=== PATIENT | female | born 1955 | race Caucasian/White ===

== ENCOUNTER 2018-02-06 11:58 | Inpatient (IN) ==
[2018-02-06] MEDS ORDERED: DEXTROSE 50% 50 ML VIAL IV ONE ×2 (12:35→14:14)
[2018-02-06 12:47] LABS: Basophils # (Auto) 0 K/mcL (0.0-0.3); Basophils % (Auto) 0.3 % (0.0-2.0); Eosinophils # (Auto) 0.1 K/mcL (0.0-0.7); Eosinophils % (Auto) 0.7 % (0.0-7.0); Granulocytes % (Auto) 66.5 % (38.0-78.0); Lymphocytes # (Auto) 1.7 K/mcL (1.5-4.8); Lymphocytes % (Auto) 20.6 % (15.5-49.0); Mean Cell Volume 93.3 fL (80.0-100.0); Mean Corpuscular HGB Conc 33.5 g/dL (31.0-36.0); Mean Corpuscular Hemoglobin 31.3 pg (26.0-34.0); Monocytes % (Auto) 11.9 % (1.0-12.0); Platelet Count 278 K/mcL (140-440); RBC 3.93 M/mcL (4.00-5.20); Red Cell Distribution Width 13.6 % (11.5-14.5)
[2018-02-06 13:05] LABS: Blood Urea Nitrogen 11 mg/dl (8-23)
[2018-02-06 13:56] LABS: Erythrocyte Sedimentation Rate 44 mm/hr (0-20)
[2018-02-06] MEDS ORDERED: ceFAZolin 1 GM VIAL IV SCH (14:30)
[2018-02-06] MEDS ORDERED: ceFAZolin 1 GM VIAL IV ONE (15:30)
[2018-02-06] MEDS ORDERED: ONDANSETRON 4 MG/2 ML VIAL IV ONE (15:30)
[2018-02-06] MEDS ORDERED: LIDOCAINE HCL/PF 100 MG/5 ML SYRINGE IV ONE (15:30)
[2018-02-06] MEDS ORDERED: fentaNYL 250 MCG/5 ML VIAL IV ONE (15:30)
[2018-02-06] MEDS ORDERED: DEXAMETHASONE 10 MG/ML VIAL IV ONE (15:30)
[2018-02-06] MEDS ORDERED: PROPOFOL 200 MG/20 ML VIAL IV ONE (15:30)
[2018-02-06] MEDS ORDERED: MIDAZOLAM 5 MG/5 ML VIAL IV ONE (15:30)
[2018-02-06] MEDS ORDERED: MEPERIDINE 25 MG/ML SYRINGE IV PRN (16:03)
[2018-02-06] MEDS ORDERED: ACETAMINOPHEN 1,000 MG/100 ML BOTTLE IV ONE (16:03)
[2018-02-06] MEDS ORDERED: FLUMAZENIL 0.1 MG/ML ML IV PRN (16:03)
[2018-02-06] MEDS ORDERED: NALOXONE HCL 0.4 MG/ML VIAL IV PRN (16:03)
[2018-02-06] MEDS ORDERED: PROMETHAZINE 25 MG/ML VIAL IV PRN (16:03)
[2018-02-06] MEDS ORDERED: diphenhydrAMINE 50 MG/ML VIAL IV PRN (16:03)
[2018-02-06] MEDS ORDERED: IPRATROPIUM/ALBUTEROL 3 ML AMPUL.NEB NEB PRN (16:03)
[2018-02-06] MEDS ORDERED: ONDANSETRON 4 MG/2 ML VIAL IV PRN (16:03)
[2018-02-06] MEDS ORDERED: fentaNYL 100 MCG/2 ML VIAL IV PRN (16:03)
[2018-02-06] MEDS ORDERED: BENZOCAINE/MENTHOL 1 LOZENGE PO PRN (16:03)
[2018-02-06] MEDS ORDERED: LACTATED RINGERS 250 ML IV PRN (16:03)
[2018-02-06] MEDS ORDERED: TOBRAMYCIN SULFATE 1.2 GM VIAL TOPICAL ONE (16:10)
[2018-02-06] MEDS ORDERED: VANCOMYCIN 1 GM VIAL TOPICAL SCH (16:10)
[2018-02-06] MEDS ORDERED: GENTAMICIN SULFATE 800 MG/20 ML VIAL IR ONE (16:13)
[2018-02-06] MEDS ORDERED: LACTATED RINGERS 1,000 ML IV SCH (16:15)
[2018-02-06] MEDS ORDERED: TRANEXAMIC ACID 1,000 MG/10 ML VIAL IV ONE (16:26)
[2018-02-06] MEDS ORDERED: POLYETHYLENE GLYCOL 3350 17 GM PACKET PO PRN (16:26)
[2018-02-06] MEDS ORDERED: MAGNESIUM HYDROXIDE 30 ML ORAL.SUSP PO PRN (16:26)
[2018-02-06] MEDS ORDERED: METHOCARBAMOL 750 MG TABLET PO PRN (16:26)
[2018-02-06] MEDS ORDERED: BISACODYL 10 MG SUPP.RECT PR PRN (16:26)
--- NOTE | 2018-02-06 16:26 | Brief Operative Note ---
Date of procedure: 02/06/18 Pre-op diagnosis: wound dehiscence, possible deep infection left total knee replacement Post-op diagnosis: same Procedure: debridement with placement of antibiotic beads Grafts/Implants: No Anesthesia: GETA Complications: none Surgeon: Nato Chino Internist: Merlni Smith Estimated blood loss (cc): 50 Tourniquet Time (Minutes): 45 Specimens Removed/Pathology: other (SQ cx, deep cx, deep cell count) Condition: stable Disposition: PACU
[2018-02-06] MEDS ORDERED: INSULIN LISPRO 1 UNIT/0.01 ML UNIT SQ PRN (16:35)
[2018-02-06] MEDS ORDERED: IPRATROPIUM BROMIDE 1 PUFF INHALER INH SCH (16:45)
[2018-02-06] MEDS ORDERED: DEXTROSE 50% 50 ML VIAL IV PRN (17:00)
[2018-02-06] MEDS: 0.9 % SODIUM CHLORIDE 1,000 ML IV SCH (19:36)
[2018-02-06] MEDS: HYDROcodone/APAP 10/325MG TABLET PO PRN (19:36)
[2018-02-06 20:06] LABS: Appearance,Synovial Fluid BLOODY; Color,Synovial Fluid RED; Lymphocytes,Synovial Fluid 2 %; Neutrophils,Synovial Fluid 94 % (0-25); Other Cells,Synovial Fluid 4 %
[2018-02-06] MEDS: IPRATROPIUM/ALBUTEROL 3 ML AMPUL.NEB NEB SCH ×2 (20:36→23:48)
[2018-02-06] MEDS: buPROPion 150 MG TAB.SR.12H PO SCH (21:02)
[2018-02-06] MEDS: ATORVASTATIN 20 MG TABLET PO SCH (21:02)
[2018-02-06] MEDS: SENNOSIDES 1 TABLET PO SCH (21:02)
[2018-02-06] MEDS: INSULIN GLARGINE, HUMAN 1 UNIT/0.01 ML SQ SCH (21:02)
[2018-02-06] MEDS: DOCUSATE SODIUM 100 MG CAPSULE PO SCH (21:02)
[2018-02-06] MEDS: ceFAZolin 1 GM VIAL IV SCH (23:11)
[2018-02-07] MEDS: HYDROcodone/APAP 10/325MG TABLET PO PRN ×5 (03:01→19:45)
[2018-02-07] MEDS: 0.9 % SODIUM CHLORIDE 1,000 ML IV SCH (03:48)
[2018-02-07] MEDS: IPRATROPIUM/ALBUTEROL 3 ML AMPUL.NEB NEB SCH ×6 (03:51→23:14)
[2018-02-07] MEDS: ceFAZolin 1 GM VIAL IV SCH (06:55)
--- NOTE | 2018-02-07 06:59 | Operative Note ---
DATE OF OPERATION: 02/06/2018 PREOPERATIVE DIAGNOSIS: Wound dehiscence with infection status post left knee replacement. POSTOPERATIVE DIAGNOSIS: Wound dehiscence with infection status post left knee replacement. OPERATION: Incision and drainage with arthrotomy and placement of antibiotic beads. SURGEON: Nato Chion MD [employer] PANELS PLATER: Merlin Smith PA-C ANESTHESIA: General done by Wero Glover CRNA. TOURNIQUET TIME: 45 minutes. ESTIMATED BLOOD LOSS: 50 mL SUMMARY OF PROCEDURE: General anesthesia was attained. The left knee show dehiscence distally and also medially consistent with microvascular disease. There was some expressed seropurulent material. This was sampled from the subcutaneous tissue for aerobic and anaerobic analysis. The necrotic aspect of the midline incision was excised. This was all inferior to the tibial tubercle. This incision was taken down to the anterior musculature. This area was irrigated with 3 liters of antibiotic irrigant as well as with the IrriSept. The suture line in the area of the quadriceps was intact. Prior to opening the joint, I took an aspiration of the contained fluid as there was no disruption in the retinaculum. 6 mL of fluid were obtained. This was sampled on a urine strip and was negative for white cells. A lateral release was done. The jet lavage was placed into the joint and the joint was thoroughly irrigated. The suture line was not taken down as the joint did not appear to be infected. We then reirrigated the subcutaneous tissue. Antibiotic beads were placed in the subcutaneous tissue as well. Antibiotic beads were then placed throughout the knee The incision was then closed with 2-0 Monocryl and mattress sutures of #2 nylon. A sterile compressive dressing was applied followed by a knee brace. The sponge and needle count was correct. The patient tolerated the procedure well and was taken to the recovery room in stable condition. TJF:[id number] Job ID: [id number] Doc ID: [id number] Nato Chino MD MTDBrice
[2018-02-07] MEDS ORDERED: DEXTROSE 31 GM ORAL.SUSP PO PRN (08:00)
[2018-02-07] MEDS ORDERED: DEXTROSE 50% 50 ML VIAL IV PRN (08:00)
--- NOTE | 2018-02-07 08:03 | Orthopedic Progress Note ---
Subjective Patient information: Note initiated : 02/07/18 at 8:00 am Service Date, if different from initiated Date: [] Patient: Mariel Presley 62 y/o F admitted on 02/06/18 for I&D of left Knee/ Proximal Tibia. Chief Complaint: [] Patient is doing well today and her pain is controlled on pain medicine. She denies any calf pain, numbness/tingling, weakness, or any other acute symptoms. Objective Vital signs: Vital Signs Temp Pulse Pulse Resp BP BP Pulse Ox 02/07/18 07:26 92 02/07/18 07:22 85 16 02/07/18 07:00 99.1 F H 98 H 16 133/71 96 02/07/18 03:14 98.7 F 92 H 16 148/74 94 02/07/18 00:00 98.5 F 89 14 158/77 96 02/06/18 23:48 87 14 98 02/06/18 20:39 87 16 95 02/06/18 20:25 98.3 F 88 18 148/77 93 02/06/18 19:28 97.6 F 92 H 16 155/70 94 02/06/18 18:10 98.0 F 84 16 152/65 94 02/06/18 17:37 97.8 F 85 16 157/76 96 02/06/18 17:35 97.8 F 80 15 146/78 95 02/06/18 17:20 97.8 F 78 15 144/83 95 02/06/18 17:05 80 15 146/78 96 02/06/18 16:51 98.1 F 84 17 125/56 96 02/06/18 12:27 98.1 F 74 16 135/71 98 Intake and Output 02/06/18 02/07/18 02/07/18 21:59 05:59 13:59 Intake Total 150 / 150 Balance 150 / 150 Intake: Oral 150 / 150 Other: Meal pt provided soup and orange juice # Voids 1 1 Weight 205 lb Intake & Output: Intake & Output 02/06/18 02/07/18 02/07/18 21:59 05:59 13:59 Intake Total 150 / 150 Balance 150 / 150 Weight 205 lb Intake: Oral 150 / 150 Other: Meal pt provided soup and orange juice # Voids 1 1 Incision: Yes healing, Yes clean and dry Dressing: Yes clean, Yes dry, Yes intact Weight bearing status: full Neurological exam IM: Yes neurovascular intact Extremities exam IM: No calf tenderness, Yes normal inspection, Yes Foot pink and warm - Labs CBC & BMP: 02/07/18 04:30 02/06/18 12:23 Labs: Orthopedic Labs 02/07/18 04:30 PT 13.4 INR 1.0 02/07/18 02/06/18 04:30 12:23 Hgb 12.1 12.3 Hct 36.7 36.7 Assessment and Plan (1) Infection following a procedure, sequela Patient had an irrigation and debridement yesterday for cellulitis and abscess s /p left total knee arthroplasty with possible joint involvement. Cultures from the abscess and the joint are pending. Cell count of the joint does not appear to show infection. She had antibiotic beads placed and her skin was closed but due to the resection of tissue her wound is very tight and she is not to bend her knee. Plan: 1. PT only for WB but no ROM 2. Wound care consultation today with possibility of wound vac 3. Hospitalists consult for IV antibiotic choice for outpatient for next 2 weeks or more as indicated 4. PICC line placement today 5. Likely discharge within 1-2 days 6. Smoking cessation continued to be encouraged Status: Acute
[2018-02-07] MEDS: INSULIN GLARGINE, HUMAN 1 UNIT/0.01 ML SQ SCH ×3 (09:14→21:11)
[2018-02-07] MEDS: CHLORTHALIDONE 25 MG TABLET PO SCH (09:16)
[2018-02-07] MEDS: POTASSIUM CHLORIDE 10 MEQ TABLET PO SCH (09:16)
[2018-02-07] MEDS: buPROPion 150 MG TAB.SR.12H PO SCH ×2 (09:17→20:08)
[2018-02-07] MEDS: LOSARTAN 50 MG TABLET PO SCH (09:18)
[2018-02-07] MEDS: DOCUSATE SODIUM 100 MG CAPSULE PO SCH ×2 (09:18→20:08)
[2018-02-07] MEDS: FUROSEMIDE 40 MG TABLET PO SCH (09:18)
[2018-02-07] MEDS: ASPIRIN 325 MG ENTERIC COATED TABLET PO SCH (09:19)
[2018-02-07] MEDS: ISOSORBIDE MONONITRATE 30 MG TAB.XL.24H PO SCH (09:19)
[2018-02-07 09:25] LABS: ALT/SGPT 10 U/l (0-40); Albumin 3.1 gm/dL (3.2-5.2); Alkaline Phosphatase 90 U/L (39-117); Bilirubin,Direct < 0.2 mg/dL (0.0-0.3); Blood Urea Nitrogen 5 mg/dl (8-23); Gamma Glutamyl Transpeptidase 39 U/L (5-36); Uric Acid 3.4 mg/dL (2.5-8.0)
[2018-02-07] MEDS ORDERED: MAGNESIUM SULFATE 2 GM/50 ML BAG IV ONE (09:28)
[2018-02-07] MEDS ORDERED: VANCOMYCIN PER PHARMACY IV SCH (09:29)
[2018-02-07] MEDS: FLUTICASONE/SALMETEROL 50/100 INHALER #14 INH SCH ×2 (11:00→21:07)
[2018-02-07] MEDS: UMECLIDINIUM 62.5 MCG INH SCH (11:00)
--- NOTE | 2018-02-07 11:31 | Internal Medicine Consult Note ---
Medical - CN: HPI - Data of Consult Requesting Physician: Nato Chino Primary Care Provider: Christie Avalos - Consult Narrative Reason for consult: Possible Septic ARthritis/ medical Management History of present illness: Ms. Presley is a 62 year old Female who had knee replacement surgery done in December. The patient status post surgery notes that she had ongoing seepage of blood through the incision site. She was given Keflex and rifampin early this week because it was thought that the wound was infected. The patient infection did not get controlled with the oral antibiotics and the patient was admitted to the hospital yesterday for incision and drainage of the wound as well as a look to see if the joint was involved. At this time it is not clear of the joint is involved. Medicine team was consulted for management of chronic medical conditions as well as management of antibiotics. [place] On my evaluation patient is sitting comfortably in the chair, I believe daughter by the bedside. Patient had no acute complaints just had mild shortness of breath. She attributes to shortness of breath to her COPD. She denies any chest pain shortness of breath fever headache dizziness or any other complaints. She has some soreness in the left leg. She denies any allergies to any antibiotics. I reviewed the patient's labs, available studies as well as the op report. The patient has no microbiology available on chart on no microbiology available from a previous surgery. I checked with the microbiology lab with regards to same. The patient was presently on IV Ancef. CC: Nato Chino All systems: reviewed and no additional remarkable complaints except as stated ( 10 point review of systems done negative except as per mentioned in the HPI) Medical - CN: PMH Medical history: Diabetes Hypertension Hyperlipidemia COPD Overactive bladder Coronary artery disease status post MT 12 years ago Hypothyroidism Depression anxiety Surgical history: History of appendix last year 2 C-sections Left knee replacement 5 weeks ago. Family history: reviewed and not pertinent Social history: Active smoker, approximately a pack a day in the past. 2 drinks per day of alcohol. Denies any other recreational substance use Medical - CN: Meds Home Medications Medication Instructions Recorded Confirmed Type Aspirin [Aspirin EC] 325 mg PO QDAY 11/09/15 02/06/18 History Atorvastatin [Lipitor] 80 mg PO HS 11/09/15 02/06/18 History Beclomethasone Dipropionate [Qvar 2 puff INH BID 11/09/15 02/06/18 History 40] Chlorthalidone [Hygroton] 25 mg PO QDAY 11/09/15 02/06/18 History Furosemide [Lasix] 40 mg PO QDAY 11/09/15 02/06/18 History Hydrocodone/APAP 7.5/325Mg [[place] 1 - 2 tab PO Q4HP PRN 11/09/15 02/06/18 History 7.5/325Mg] Insulin Glargine, Human [Lantus] 16 unit SQ HS 11/09/15 02/06/18 History Insulin Glargine, Human [Lantus] 32 unit SQ QAM 11/09/15 02/06/18 History Insulin Lispro [HumaLOG] 6 unit SQ PRN PRN 11/09/15 02/06/18 History Ipratropium [place] [Atrovent Hfa] 2 puff INH QIDP 11/09/15 02/06/18 History Ipratropium/Albuterol [Duoneb] 3 ml NEB Q4HRT 11/09/15 02/06/18 History Isosorbide Mononitrate [Imdur] 30 mg PO QDAY 11/09/15 02/06/18 History Losartan [Cozaar] 50 mg PO QDAY 11/09/15 02/06/18 History Metoclopramide [Reglan] 10 mg PO QIDP PRN 11/09/15 02/06/18 History Metoprolol Tartrate [Lopressor] 50 mg PO BID 11/09/15 02/06/18 History Potassium Chloride [Kdur] 10 meq PO QDAY 11/09/15 02/06/18 History buPROPion [Wellbutrin] 150 mg PO BID 11/09/15 02/06/18 History Mirabegron [Myrbetriq] 25 mg PO DAILY 02/06/18 02/06/18 History Albuterol Sulfate [Proair Hfa] 8.5 gm IH PRN PRN 02/07/18 02/07/18 History Fluticasone/Salmeterol [Advair 1 puff INH BID 02/07/18 02/07/18 History 100-50 Diskus] Umeclidinium [place] [Incruse 1 puff INH DAILY 02/07/18 02/07/18 History Ellipta] Umeclidinium [place] [Incruse 62.5 mcg IH DAILY 02/07/18 02/07/18 History Ellipta] Allergies Allergy/AdvReac Type Severity Reaction Status Date / Time No Known Drug Allergies Allergy Unverified 02/07/18 08:36 Medical - CN: Exam - Constitutional Vitals: Temp Pulse Resp BP Pulse Ox 99.1 F H 85 16 133/71 92 02/07/18 07:00 02/07/18 07:22 02/07/18 07:22 02/07/18 07:00 02/07/18 07:26 Exam: GENERAL: The patient is a well-developed, well-nourished in no apparent distress. Is alert and oriented x3. VITAL SIGNS: Reviewed and as noted elsewhere. HEENT: Head is normocephalic and atraumatic. Extraocular muscles are intact. Pupils are equal, round, and reactive to light. Nares appeared normal. Mouth appears any without lesions. Mucous membranes are moist. NECK: Normal to inspection, Supple, No lymphadenopathy or thyromegaly. LUNGS: Air entry equal on both sides, mild expiratory wheezing, prolonged expiratory phase, no crackles noted, speaking full sentences no accessory muscle use HEART: Regular rate and rhythm normal, S1 and S2 heard, no Gallop, S3 or Rub Noted, No Gross murmur heard. ABDOMEN: Soft, nontender, and nondistended. Positive bowel sounds. No hepatosplenomegaly was noted. EXTREMITIES: No cyanosis, clubbing, rash, lesions or edema. left leg in dressing NEUROLOGIC: Cranial nerves II through XII are grossly intact. Motor and Sensory System Grossly Intact PSYCHIATRIC: Normal affect, Normal Mood. Appropriate Behavior. SKIN: No ulceration or wounds noted, No jaundice, No rash noted. Medical - CN: Result - Labs CBC & Chem 7: 02/07/18 04:30 02/07/18 08:21 Labs: Short CBC 02/06/18 02/07/18 Range/Units 12:23 04:30 WBC 8.1 (4.5-11.0) K/mcL Hgb 12.3 12.1 (12.0-15.0) g/dL Hct 36.7 36.7 (36.0-48.0) % Plt Count 278 (140-440) K/mcL BMP 02/06/18 02/07/18 12:23 08:21 Sodium 125 L 130 L Potassium 3.3 3.7 Chloride 87 L 91 L Carbon Dioxide 27 26 BUN 11 5 L Creatinine 0.8 0.6 Glucose 46 L 73 Calcium 8.9 9.3 Liver Function 02/07/18 Range/Units 08:21 Total Bilirubin 0.3 (0.0-1.0) mg/dL Direct Bilirubin < 0.2 (0.0-0.3) mg/dL GGT 39 H (5-36) U/L AST 15 (0-37) U/l ALT 10 (0-40) U/l Alkaline Phosphatase 90 (39-117) U/L Albumin 3.1 L (3.2-5.2) gm/dL Medical - CN: A/P - Narrative A/P Narrative: A/P Acute septic Arthritis: s/p incision and drainage, joint washout and antibiotics bead placement, microbiology gram stain shows gpc, identification pending. Start on rochepin and vancomycin for now till sensitivities come back, then descalate treatment per sensitivities, would advise atleast 4 weeks of antibiotics. Weekly labs cbc, cmp, esr and crp. Rest of medical conditions appear stable DM, on insulin, glucose well controlled, on home meds HTN/HLD/CAD/ S/p MT: resume home meds, no chest pain, EKG reviewed, sinus, left axis, qs in ant leads, no acute changes noted. COPD exacerbation: Pt has some shortness of breath, on duonebs for now, see how she responds, given her recent surgery will avoid systemic steroids for now, start on pulmicort. Hyponatremia Na 130, stable is chr as per patient, she is on a thiazide diuretic , and is post op. Will need to follow up as out patient by PCP. If Na worsens can consider atlernative agent for blood pressure control
--- NOTE | 2018-02-07 12:38 | XRay Report ---
CLINICAL INFORMATION: PICC line placement TECHNIQUE: AP portable semiupright chest x-ray COMPARISON: None. FINDINGS: Left-sided PICC line with its tip in the right atrium. This should be pulled back approximately 4 cm No pulmonary parenchymal mass. No focal infiltrate. No evidence for congestive heart failure. IMPRESSION: Left-sided PICC line with its tip in the right atrium Interpreted and Authenticated by: Eric Vaughn 02/07/18
[2018-02-07] MEDS: VANCOMYCIN 1,500 MG in 0.9 % SODIUM CHLORIDE 500 ML IV SCH ×2 (13:21→22:21)
[2018-02-07] MEDS: cefTRIAXone 2 GM VIAL IV SCH (13:30)
[2018-02-07] MEDS: INSULIN LISPRO 1 UNIT/0.01 ML UNIT SQ SCH ×3 (13:35→20:08)
[2018-02-07] MEDS ORDERED: ceFAZolin 1 GM VIAL IV SCH (15:00)
[2018-02-07] MEDS: ONDANSETRON 4 MG/2 ML VIAL IV PRN (16:11)
[2018-02-07] MEDS: BUDESONIDE 0.5 MG/2 ML AMPUL.NEB NEB SCH ×2 (16:47→19:18)
--- NOTE | 2018-02-07 16:56 | General Surgery Consult Note ---
History of Present Illness Patient information: Note initiated : 02/07/18 at 4:51 pm Service Date, if different from initiated Date: [] Patient: Mariel Presley 62 y/o F admitted on 02/06/18 for I&D of Left Knee/ Proximal Tibia. Chief Complaint: [] Consult date: 02/06/18 Requesting physician: Nato Sarabia (Wound Management) History of present illness: 02/07/2018 I saw this lady last evening, post operatively. She was asleep then. Reevaluated her today along with Sandee WEATHERS. 62/ F. Everyday Smoker and history of chronic tremors of both hands. S/P Left TKA over 2 weeks ago. Noted to have drainage from the surgical site and underwent Reexploration of joint via a lateral incision last evening. Intraoperative specimen were taken for Gram stin and cultures. Final reports awaited. Patietn was given IV Ancef and now medications adjusted by Dr. Paula Hospitalist Physician. Now on Vanco and Rocephin. I have reviewed patient's PMH and PSH details, list of medications. NKDA, Medications and Allergies Home Medications Medication Instructions Recorded Confirmed Type Aspirin [Aspirin EC] 325 mg PO QDAY 11/09/15 02/06/18 History Atorvastatin [Lipitor] 80 mg PO HS 11/09/15 02/06/18 History Beclomethasone Dipropionate [Qvar 2 puff INH BID 11/09/15 02/06/18 History 40] Chlorthalidone [Hygroton] 25 mg PO QDAY 11/09/15 02/06/18 History Furosemide [Lasix] 40 mg PO QDAY 11/09/15 02/06/18 History Hydrocodone/APAP 7.5/325Mg [[place] 1 - 2 tab PO Q4HP PRN 11/09/15 02/06/18 History 7.5/325Mg] Insulin Glargine, Human [Lantus] 16 unit SQ HS 11/09/15 02/06/18 History Insulin Glargine, Human [Lantus] 32 unit SQ QAM 11/09/15 02/06/18 History Insulin Lispro [HumaLOG] 6 unit SQ PRN PRN 11/09/15 02/06/18 History Ipratropium [place] [Atrovent Hfa] 2 puff INH QIDP 11/09/15 02/06/18 History Ipratropium/Albuterol [Duoneb] 3 ml NEB Q4HRT 11/09/15 02/06/18 History Isosorbide Mononitrate [Imdur] 30 mg PO QDAY 11/09/15 02/06/18 History Losartan [Cozaar] 50 mg PO QDAY 11/09/15 02/06/18 History Metoclopramide [Reglan] 10 mg PO QIDP PRN 11/09/15 02/06/18 History Metoprolol Tartrate [Lopressor] 50 mg PO BID 11/09/15 02/06/18 History Potassium Chloride [Kdur] 10 meq PO QDAY 11/09/15 02/06/18 History buPROPion [Wellbutrin] 150 mg PO BID 11/09/15 02/06/18 History Mirabegron [Myrbetriq] 25 mg PO DAILY 02/06/18 02/06/18 History Albuterol Sulfate [Proair Hfa] 8.5 gm IH PRN PRN 02/07/18 02/07/18 History Fluticasone/Salmeterol [Advair 1 puff INH BID 02/07/18 02/07/18 History 100-50 Diskus] Umeclidinium [place] [Incruse 1 puff INH DAILY 02/07/18 02/07/18 History Ellipta] Umeclidinium [place] [Incruse 62.5 mcg IH DAILY 02/07/18 02/07/18 History Ellipta] Allergies Allergy/AdvReac Type Severity Reaction Status Date / Time No Known Drug Allergies Allergy Unverified 02/07/18 08:36 Exam Temp Pulse Resp BP Pulse Ox 98.4 F 98 H 18 130/62 91 02/07/18 15:55 02/07/18 15:22 02/07/18 15:55 02/07/18 15:55 02/07/18 15:55 - General physical appearance well developed, well nourished, no distress - Eyes PERRL, normal ocular movement - ENT normal pinna, normal nares, normal mucosa, no congestion - Head Head exam IM: Present: atraumatic, normal inspection, normocephalic - Neck no masses, no bruits, trachea midline, no venous distension - Cardiovascular Cardiovascular exam IM: Present: normal rate and rhythm - Respiratory normal expansion, normal respiratory effort, clear to auscultation - Abdomen Abdomen: Present: soft, non tender, bowel sounds - Integumentary Present: no rash (SHASHANK bandage was taken down. Strike throu bright red staining of Kerlix gauze was noted and marked out. Stable. This area was reinforced with ABD pad and SHASHANK bandage.. ) - Neurologic Present: normal coordination, normal sensation - Musculoskeletal Present: other (Ambulated with walker. FWB. She has a posterior knee splint of LEFT leg and thigh. ) - Psychiatric Present: oriented to time, oriented to person, oriented to place, speech is normal, memory intact Results - Labs 02/07/18 04:30 02/07/18 08:21 Abnormal lab results 02/06/18 02/07/18 Range/Units 17:42 08:21 Sodium 130 L (133-145) mmol/L Chloride 91 L (96-108) mmol/L BUN 5 L (8-23) mg/dl Magnesium 1.5 L (1.6-2.5) mg/dL GGT 39 H (5-36) U/L Albumin 3.1 L (3.2-5.2) gm/dL Synovial Neutrophils 94 H (0-25) % Diabetes panel 02/07/18 Range/Units 08:21 Sodium 130 L (133-145) mmol/L Potassium 3.7 (3.3-5.1) mmol/L Chloride 91 L (96-108) mmol/L Carbon Dioxide 26 (22-30) mmol/L BUN 5 L (8-23) mg/dl Creatinine 0.6 (0.6-1.1) mg/dl Glucose 73 (70-105) mg/dL Calcium 9.3 (8.6-10.4) mg/dl AST 15 (0-37) U/l ALT 10 (0-40) U/l Alkaline Phosphatase 90 (39-117) U/L Total Protein 6.3 (5.9-8.4) gm/dL Albumin 3.1 L (3.2-5.2) gm/dL Triglycerides 87 (<150) mg/dl Calcium panel 02/07/18 Range/Units 08:21 Calcium 9.3 (8.6-10.4) mg/dl Phosphorus 3.0 (2.7-4.5) mg/dL Albumin 3.1 L (3.2-5.2) gm/dL Pituitary panel 02/07/18 Range/Units 08:21 Sodium 130 L (133-145) mmol/L Potassium 3.7 (3.3-5.1) mmol/L Chloride 91 L (96-108) mmol/L Carbon Dioxide 26 (22-30) mmol/L BUN 5 L (8-23) mg/dl Creatinine 0.6 (0.6-1.1) mg/dl Glucose 73 (70-105) mg/dL Calcium 9.3 (8.6-10.4) mg/dl Adrenal panel 02/07/18 Range/Units 08:21 Sodium 130 L (133-145) mmol/L Potassium 3.7 (3.3-5.1) mmol/L Chloride 91 L (96-108) mmol/L Carbon Dioxide 26 (22-30) mmol/L BUN 5 L (8-23) mg/dl Creatinine 0.6 (0.6-1.1) mg/dl Glucose 73 (70-105) mg/dL Calcium 9.3 (8.6-10.4) mg/dl Total Bilirubin 0.3 (0.0-1.0) mg/dL AST 15 (0-37) U/l ALT 10 (0-40) U/l Alkaline Phosphatase 90 (39-117) U/L Total Protein 6.3 (5.9-8.4) gm/dL Albumin 3.1 L (3.2-5.2) gm/dL All other labs normal. Assessment and Plan (1) Visit for wound care Assessment: Patient is stable from wound care point of view at this time. Wound culture results are waited. Everyday Smoker. This is a risk factor for wound healing and development of wound related complications. Spent considerable time and counseled patietn about smoking cessation altogether and avoidance of any tobacco or related products UNTIL fully healed. Spoke for over 10 mts. Plan: Will take down the primary post operative dressings on Saturday evening ( 48 Hours ) and make further recommendations. THANK YOU DR. SARABIA for this consult. Will follow along with you. Status: Acute Priority: Medium
[2018-02-07] MEDS: SENNOSIDES 1 TABLET PO SCH (20:07)
[2018-02-07] MEDS: ATORVASTATIN 20 MG TABLET PO SCH (20:07)
[2018-02-08] MEDS: HYDROcodone/APAP 10/325MG TABLET PO PRN ×5 (01:56→20:28)
[2018-02-08] MEDS: IPRATROPIUM/ALBUTEROL 3 ML AMPUL.NEB NEB SCH ×6 (03:12→23:00)
--- NOTE | 2018-02-08 06:58 | General Surgery Progress Note ---
Subjective Narrative: Note initiated : 02/08/18 at 6:54 am Service Date, if different from initiated Date: [] Patient: Mariel Presley 62 y/o F admitted on 02/06/18 for I&D of Left Knee/ Proximal Tibia. Chief Complaint: [Patient seen. C/O dry cough intermittently. No fever. Dressings Left knee and leg CDI Objective Temp Pulse Resp BP Pulse Ox 97.9 F 108 H 18 174/74 93 02/08/18 06:49 02/08/18 03:22 02/08/18 06:49 02/08/18 06:49 02/08/18 06:49 AVSS. No changes SIMBA. L/E: Dressing Left knee intact. Back splint in place. No neurovascular deficits. - Additional Data Intake & Output - Last 24 hours: Intake & Output 02/06/18 02/07/18 02/08/18 02/09/18 05:59 05:59 05:59 05:59 Intake Total 150 / 150 2575 / 2575 Output Total 350 / 350 Balance 150 / 150 2225 / 2225 Weight 205 lb 192 lb 12.8 oz - Labs 02/07/18 04:30 02/07/18 08:21 Diabetes panel 02/07/18 Range/Units 08:21 Sodium 130 L (133-145) mmol/L Potassium 3.7 (3.3-5.1) mmol/L Chloride 91 L (96-108) mmol/L Carbon Dioxide 26 (22-30) mmol/L BUN 5 L (8-23) mg/dl Creatinine 0.6 (0.6-1.1) mg/dl Glucose 73 (70-105) mg/dL Calcium 9.3 (8.6-10.4) mg/dl AST 15 (0-37) U/l ALT 10 (0-40) U/l Alkaline Phosphatase 90 (39-117) U/L Total Protein 6.3 (5.9-8.4) gm/dL Albumin 3.1 L (3.2-5.2) gm/dL Triglycerides 87 (<150) mg/dl Calcium panel 02/07/18 Range/Units 08:21 Calcium 9.3 (8.6-10.4) mg/dl Phosphorus 3.0 (2.7-4.5) mg/dL Albumin 3.1 L (3.2-5.2) gm/dL Pituitary panel 02/07/18 Range/Units 08:21 Sodium 130 L (133-145) mmol/L Potassium 3.7 (3.3-5.1) mmol/L Chloride 91 L (96-108) mmol/L Carbon Dioxide 26 (22-30) mmol/L BUN 5 L (8-23) mg/dl Creatinine 0.6 (0.6-1.1) mg/dl Glucose 73 (70-105) mg/dL Calcium 9.3 (8.6-10.4) mg/dl Adrenal panel 02/07/18 Range/Units 08:21 Sodium 130 L (133-145) mmol/L Potassium 3.7 (3.3-5.1) mmol/L Chloride 91 L (96-108) mmol/L Carbon Dioxide 26 (22-30) mmol/L BUN 5 L (8-23) mg/dl Creatinine 0.6 (0.6-1.1) mg/dl Glucose 73 (70-105) mg/dL Calcium 9.3 (8.6-10.4) mg/dl Total Bilirubin 0.3 (0.0-1.0) mg/dL AST 15 (0-37) U/l ALT 10 (0-40) U/l Alkaline Phosphatase 90 (39-117) U/L Total Protein 6.3 (5.9-8.4) gm/dL Albumin 3.1 L (3.2-5.2) gm/dL Assessment and Plan (1) Visit for wound care Status: Acute Current Visit: Yes - Time Spent With Patient Total time spent is greater than 50% in coordination of care (as documented) at patient's floor/unit and/or counseling patient: Assessment: Stable post operatively Plan: Continue present treatment. 15 - 24 minutes
[2018-02-08] MEDS: BUDESONIDE 0.5 MG/2 ML AMPUL.NEB NEB SCH ×2 (07:07→19:20)
[2018-02-08] MEDS ORDERED: OMEPRAZOLE 20 MG CAPSULE PO SCH (07:30)
--- NOTE | 2018-02-08 07:34 | Orthopedic Progress Note ---
Subjective Patient information: Note initiated : 02/08/18 at 7:31 am Service Date, if different from initiated Date: [] Patient: Mariel Presley 62 y/o F admitted on 02/06/18 for I&D of Left Knee/ Proximal Tibia. Chief Complaint: [POD #2 s/p left knee I&D of TKA Doing fairly well. Has strong active cough this morning, no sputum while I was in the room. Denies significant pain, numbness, tingling, CP or SOB. Is overall doing okay. States that her allergies are bothering her.] Objective Vital signs: Vital Signs Temp Pulse Pulse Resp BP Pulse Ox 02/08/18 07:07 105 H 20 02/08/18 06:49 97.9 F 18 174/74 93 02/08/18 03:22 108 H 18 02/08/18 03:20 97.8 F 108 H 18 160/73 92 02/07/18 23:38 98.6 F 113 H 20 139/72 93 02/07/18 23:14 102 H 20 02/07/18 19:20 102 H 18 91 02/07/18 19:10 98.7 F 105 H 18 141/62 94 02/07/18 15:55 98.4 F 18 130/62 91 02/07/18 15:22 93 H 20 91 Intake and Output 02/07/18 02/08/18 02/08/18 21:59 05:59 13:59 Intake Total 1075 / 1075 900 / 900 Output Total 350 / 350 Balance 1075 / 1075 550 / 550 Intake: IV 550 / 550 500 / 500 Vancomycin 1,500 mg In Sodium 500 / 500 500 / 500 Chloride 0.9% 500 ml @ 333.3 mls/hr IV Q12H [facility] Rx#: [id number] Oral 525 / 525 400 / 400 Output: Void Amount 350 / 350 Other: Meal Dinner Percent of Meal Consumed 75% Feeding Ability Independent # Voids 1 1 1 Weight 192 lb 12.8 oz Intake & Output: Intake & Output 02/07/18 02/08/18 02/08/18 21:59 05:59 13:59 Intake Total 1075 / 1075 900 / 900 Output Total 350 / 350 Balance 1075 / 1075 550 / 550 Weight 192 lb 12.8 oz Intake: IV 550 / 550 500 / 500 Vancomycin 1,500 mg In Sodium 500 / 500 500 / 500 Chloride 0.9% 500 ml @ 333.3 mls/hr IV Q12H [facility] Rx#: [id number] Oral 525 / 525 400 / 400 Output: Void Amount 350 / 350 Other: Meal Dinner Percent of Meal Consumed 75% Feeding Ability Independent # Voids 1 1 1 Incision: Yes healing, Yes clean and dry Incision clean and dry: Yes Dressing: Yes clean, Yes dry, Yes intact Weight bearing status: non Neurological exam IM: Yes alert, Yes oriented X3, Yes motor sensory intact, Yes neurovascular intact Extremities exam IM: No calf tenderness, Yes normal inspection, Yes Foot pink and warm, Yes neurovascular intact - Periperhal Pulses Peripheral pulses: 2+: dorsalis pedis (L), dorsalis pedis (R), posterior tibialis (L), posterior tibialis (R) - Labs CBC & BMP: 02/08/18 04:00 02/07/18 08:21 Labs: Orthopedic Labs 02/08/18 02/07/18 04:00 04:30 PT Pending 13.4 INR Pending 1.0 02/08/18 02/07/18 02/06/18 04:00 04:30 12:23 Hgb 11.7 L 12.1 12.3 Hct 35.8 L 36.7 36.7 Assessment and Plan (1) Infection following a procedure, sequela POD #2 s/p left knee I&D: -allergy med order -d/c per Dr. Chino likely on 02/09/2018 -continue IV antibiotics per hospitalist -PICC line care -pain control -leave dressing intact Status: Acute
[2018-02-08] MEDS: INSULIN GLARGINE, HUMAN 1 UNIT/0.01 ML SQ SCH ×2 (08:22→18:43)
[2018-02-08] MEDS: INSULIN LISPRO 1 UNIT/0.01 ML UNIT SQ SCH ×4 (08:23→20:45)
[2018-02-08] MEDS: POTASSIUM CHLORIDE 10 MEQ TABLET PO SCH (08:24)
[2018-02-08] MEDS: FEXOFENADINE 180 MG TABLET PO SCH (08:24)
[2018-02-08] MEDS: CHLORTHALIDONE 25 MG TABLET PO SCH (08:24)
[2018-02-08] MEDS: DOCUSATE SODIUM 100 MG CAPSULE PO SCH ×2 (08:24→20:45)
[2018-02-08] MEDS: buPROPion 150 MG TAB.SR.12H PO SCH ×2 (08:25→20:45)
[2018-02-08] MEDS: LOSARTAN 50 MG TABLET PO SCH (08:25)
[2018-02-08] MEDS: ASPIRIN 325 MG ENTERIC COATED TABLET PO SCH (08:25)
[2018-02-08] MEDS: cefTRIAXone 2 GM VIAL IV SCH (08:26)
[2018-02-08] MEDS: ISOSORBIDE MONONITRATE 30 MG TAB.XL.24H PO SCH (08:26)
[2018-02-08] MEDS: FUROSEMIDE 40 MG TABLET PO SCH (08:26)
[2018-02-08] MEDS: FLUTICASONE/SALMETEROL 50/100 INHALER #14 INH SCH ×2 (08:57→20:45)
[2018-02-08] MEDS: UMECLIDINIUM 62.5 MCG INH SCH (08:58)
[2018-02-08] MEDS: VANCOMYCIN 1,500 MG in 0.9 % SODIUM CHLORIDE 500 ML IV SCH ×2 (11:15→22:00)
[2018-02-08] MEDS: ONDANSETRON 4 MG/2 ML VIAL IV PRN (19:45)
[2018-02-08] MEDS: ATORVASTATIN 20 MG TABLET PO SCH (20:45)
[2018-02-08] MEDS: SENNOSIDES 1 TABLET PO SCH (20:45)
[2018-02-09] MEDS: HYDROcodone/APAP 10/325MG TABLET PO PRN ×5 (00:55→23:55)
[2018-02-09] MEDS: IPRATROPIUM/ALBUTEROL 3 ML AMPUL.NEB NEB SCH ×6 (03:00→22:47)
[2018-02-09] MEDS: INSULIN GLARGINE, HUMAN 1 UNIT/0.01 ML SQ SCH ×2 (08:00→17:20)
[2018-02-09] MEDS: BUDESONIDE 0.5 MG/2 ML AMPUL.NEB NEB SCH ×2 (08:30→19:08)
[2018-02-09] MEDS: LOSARTAN 50 MG TABLET PO SCH ×2 (09:00)
[2018-02-09] MEDS: cefTRIAXone 2 GM VIAL IV SCH (09:00)
[2018-02-09] MEDS: ASPIRIN 325 MG ENTERIC COATED TABLET PO SCH (09:00)
[2018-02-09] MEDS: DOCUSATE SODIUM 100 MG CAPSULE PO SCH ×2 (09:00→20:23)
[2018-02-09] MEDS: CHLORTHALIDONE 25 MG TABLET PO SCH (09:00)
[2018-02-09] MEDS: POTASSIUM CHLORIDE 10 MEQ TABLET PO SCH (09:00)
[2018-02-09] MEDS: buPROPion 150 MG TAB.SR.12H PO SCH ×2 (09:00→20:23)
[2018-02-09] MEDS: FUROSEMIDE 40 MG TABLET PO SCH (09:00)
[2018-02-09] MEDS: FEXOFENADINE 180 MG TABLET PO SCH (09:00)
[2018-02-09] MEDS: FLUTICASONE/SALMETEROL 50/100 INHALER #14 INH SCH ×2 (09:00→20:22)
[2018-02-09] MEDS: VANCOMYCIN 1,500 MG in 0.9 % SODIUM CHLORIDE 500 ML IV SCH ×2 (09:06→22:08)
[2018-02-09] MEDS: UMECLIDINIUM 62.5 MCG INH SCH (09:31)
[2018-02-09] MEDS: ISOSORBIDE MONONITRATE 30 MG TAB.XL.24H PO SCH (09:32)
[2018-02-09] MEDS: METOCLOPRAMIDE 10 MG TABLET PO PRN ×3 (11:57→20:23)
[2018-02-09] MEDS: INSULIN LISPRO 1 UNIT/0.01 ML UNIT SQ SCH ×4 (12:00→20:22)
--- NOTE | 2018-02-09 13:45 | Internal Med Progress Note ---
Medical - PN: Subj Patient information: Note initiated : 02/09/18 at 11:40 am Service Date, if different from initiated Date: [] Patient: Mariel Presley 62 y/o F admitted on 02/06/18 for I&D of Left Knee/ Proximal Tibia. Chief Complaint: Patient is eating and feeling better. Discussed need for parenteral antibiotics with orthopedics and patient. - Constitutional Vitals: Vital Signs Temp Pulse Resp BP Pulse Ox 98.5 F 105 H 18 169/80 93 02/08/18 16:00 02/08/18 15:38 02/08/18 16:00 02/08/18 16:00 02/08/18 16:00 Period Temp Pulse Resp BP Sys/Wood Pulse Ox Last 24 Hr 98.5 F-98.9 F 105-105 -18 169-169/79-80 93-98 Intake and Output 02/08/18 02/09/18 02/09/18 21:59 05:59 13:59 Intake Total 750 / 750 Balance 750 / 750 Intake & Output: Intake & Output 02/08/18 02/09/18 02/09/18 21:59 05:59 13:59 Intake Total 750 / 750 Balance 750 / 750 Intake: IV 500 / 500 Vancomycin 1,500 mg In Sodium 500 / 500 Chloride 0.9% 500 ml @ 333.3 mls/hr IV Q12H [facility] Rx#: [id number] Oral 250 / 250 Other: Meal Dinner Percent of Meal Consumed 50% General appearance: average body habitus, no acute distress - Respiratory Respiratory exam: Present: normal respiratory exam - Cardiovascular Cardiovascular exam: Present: normal rate and rhythm - GI/Abdominal GI/Abdominal exam: Present: hypoactive bowel sounds - Extremities Exam Additional comments: Left LE dressing is clean and dry Medical - PN: Obj Da - Labs CBC & Chem 7: 02/08/18 04:00 02/07/18 08:21 Labs: Abnormal Lab Results 02/08/18 02/07/18 02/06/18 04:00 08:21 17:42 RBC Hgb 11.7 L Hct 35.8 L [place] # (Auto) ESR Sodium 130 L Chloride 91 L BUN 5 L Glucose Magnesium 1.5 L GGT 39 H C-Reactive Protein Albumin 3.1 L Synovial Neutrophils 94 H 02/06/18 02/06/18 02/06/18 12:23 12:23 12:23 RBC 3.93 L Hgb Hct [place] # (Auto) 1.0 H ESR 44 H Sodium 125 L Chloride 87 L BUN Glucose 46 L Magnesium GGT C-Reactive Protein 8.1 H Albumin Synovial Neutrophils Meds: Medications Hydrocodone Bitart/Acetaminophen ([place] 10/325mg) 0 tab PO Q4HP PRN PRN Reason: PAIN LEVEL 3-6 Last Admin: 02/08/18 15:05 Dose: 2 tab Albuterol/Ipratropium (Duoneb) 3 ml NEB Q4HRT [facility] Last Admin: 02/08/18 15:38 Dose: 3 ml Aspirin (Ecotrin) 325 mg PO DAILY [facility] Last Admin: 02/08/18 08:25 Dose: 325 mg Atorvastatin Calcium (Lipitor) 80 mg PO HS [facility] Last Admin: 02/07/18 20:07 Dose: 80 mg Bisacodyl (Dulcolax) 10 mg ND Q2-3DAYS PRN PRN Reason: Constipation Budesonide (Pulmicort) 0.5 mg NEB Q12 [facility] Last Admin: 02/08/18 07:07 Dose: 0.5 mg Bupropion HCl (Wellbutrin Sr) 150 mg PO BID [facility] Last Admin: 02/08/18 08:25 Dose: 150 mg Ceftriaxone Sodium (Rocephin) 2 gm IV Q24H [facility] Last Admin: 02/08/18 08:26 Dose: 2 gm Chlorthalidone (Hygroton) 25 mg PO QDAY [facility] Last Admin: 02/08/18 08:24 Dose: 25 mg Dextrose (Dextrose 50%) 0 ml IV UD PRN PRN Reason: Hypoglycemia Diagnostic Test (Pha) (Accu-Chek) 1 each FS ACHS [facility] Last Admin: 02/09/18 11:38 Dose: 1 each Docusate Sodium (Colace) 100 mg PO BID [facility] Last Admin: 02/08/18 08:24 Dose: 100 mg Fexofenadine HCl (Meenu) 180 mg PO DAILY [facility] Last Admin: 02/08/18 08:24 Dose: 180 mg Furosemide (Lasix) 40 mg PO QDAY [facility] Last Admin: 02/08/18 08:26 Dose: 40 mg Glucose (Insta-Glucose) 15 gm PO PRN PRN PRN Reason: Hypoglycemia Heparin Sodium (Porcine) (Heparin Flush) 2 ml IV Q12 [facility] Last Admin: 02/08/18 11:16 Dose: 2 ml Vancomycin HCl 1,500 mg/ (Sodium Chloride) 500 mls @ 333.3 mls/hr IV Q12H [facility] Last Infusion: 02/08/18 14:57 Dose: Infused Insulin Glargine (Lantus) 32 unit SQ QAM [facility] Last Admin: 02/08/18 08:22 Dose: 32 unit Insulin Glargine (Lantus) 16 unit SQ DAILY [facility] Insulin Human Lispro (Humalog) 0 unit SQ ACHS [facility] PRN Reason: Protocol Last Admin: 02/08/18 17:24 Dose: 1 unit Ipratropium [place] (Atrovent Hfa) 2 puff INH QIDP [facility] Isosorbide Mononitrate (Imdur) 30 mg PO QDAY [facility] Last Admin: 02/08/18 08:26 Dose: 30 mg Losartan Potassium (Cozaar) 50 mg PO QDAY [facility] Last Admin: 02/08/18 08:25 Dose: 50 mg Magnesium Hydroxide (Milk Of Magnesia) 30 ml PO BIDP PRN PRN Reason: Constipation Methocarbamol (Robaxin) 750 mg PO Q6HP PRN PRN Reason: Muscle Spasm Metoclopramide HCl (Reglan) 10 mg PO TIDP PRN PRN Reason: Dyspepsia Morphine Sulfate (Morphine) 0 mg IV Q1HP PRN PRN Reason: PAIN LEVEL > 6 Ondansetron HCl (Zofran) 4 mg IV Q4HP PRN PRN Reason: Nausea And Vomiting Last Admin: 02/07/18 16:11 Dose: 4 mg Mirabegron [ (Myrbetriq] 50 Mg Tab) 1 dose PO DAILY [facility] Last Admin: 02/08/18 08:55 Dose: 1 dose Incruse Elillpta 62. (5 Mcg Inhaler) 1 dose INH DAILY [facility] Last Admin: 02/08/18 08:58 Dose: 1 dose Polyethylene Glycol (Miralax) 17 gm PO DAILYP PRN PRN Reason: Constipation Potassium Chloride (Kdur) 10 meq PO QAMCC [facility] Last Admin: 02/08/18 08:24 Dose: 10 meq Fluticasone/Salmeterol (Advair 100-50 Diskus) 1 puff INH BID [facility] Last Admin: 02/08/18 08:57 Dose: 1 inh Senna (Senokot) 2 tab PO [facility] Last Admin: 02/07/18 20:07 Dose: 2 tab Vancomycin HCl (Vancomycin Per Pharmacy) 1 order IV UD [facility] Medical - PN: A/P - Time Spent With Patient Total time spent is greater than 50% in coordination of care (as documented) at patient's floor/unit and/or counseling patient: - Narrative A/P Narrative: 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 Medical - PN: Qual - VTE Deep Vein Thrombosis/Pulmonary Embolism Present on Admission: No
--- NOTE | 2018-02-09 17:30 | Discharge Summary ---
Providers - Providers Patient information: Note initiated : 02/09/18 at 5:27 pm Service Date, if different from initiated Date: [] Patient: Mariel Presley 62 y/o F admitted on 02/06/18 for I&D of Left Knee/ Proximal Tibia. Chief Complaint: [] She was admitted to the hospital after her irrigation and debridement for physical therapy, one care consultation, a William consultation, and to help her quit smoking. Discharge date: 02/10/18 Hospitalization Hospital course: Patient was admitted after surgery for pain control and a wound care consultation and a medicine consultation. She stayed for a total of 4 nights and will be discharged to home with wound care follow-up as well as follow-up with orthopedics within the next 3-4 days. She was discharged with pain medicine. Her stay was global compensation manager today. Discharge diagnosis: status post irrigation and debridement of a left knee abscess and celluliti Exam - Exam Incision healing: Yes Incision draining: Yes Incision red: Yes Incision swollen: Yes Clean and dry: Yes Weight bearing status: full Range of motion: she is to remain in a knee immobilizer until follow-up Ortho Discharge Plan - General - Patient Instructions Diet: Regular Diet Activity: activity as tolerated, weight bearing as tolerated, other (Do not bend her knee) Dressing Care: Other (Follow wound care instructions from the wound care clinic) Patient Education: Joint Incision and Drainage (DC) Additional Instructions: Follow up with Dr. Chino in 10 days. 02/19/18 - Problem Maintenance (1) Infection following a procedure, sequela Status: Acute - Follow Up Plan Follow Up Appointments: Nato Chino MD [Physician] - 02/19/18 (Call for an appointment in 10 days) Disposition: Home, Self-Care Prognosis: Good Rehab Potential: Good Overall status at discharge: patient is progressing back to baseline Pending Studies Resuscitation Status Full Code Diet Consistent Carbohydrate Diet Start SatFeb 07 457 Hydrocodone Bitart/Acetaminophen ([place] 10/325mg) 0 tab PO Q4HP PRN PRN Reason: PAIN LEVEL 3-6 Last Admin: 02/09/18 13:28 Dose: 2 tab Admin: 02/08/18 15:05 Dose: 2 tab Admin: 02/08/18 10:15 Dose: 1 tab Admin: 02/08/18 05:45 Dose: 1 tab Admin: 02/08/18 01:56 Dose: 2 tab Admin: 02/07/18 19:45 Dose: 2 tab Admin: 02/07/18 15:18 Dose: 2 tab Admin: 02/07/18 10:57 Dose: 2 tab Admin: 02/07/18 07:00 Dose: 2 tab Admin: 02/07/18 03:01 Dose: 1 tab Admin: 02/06/18 19:36 Dose: 1 tab Albuterol/Ipratropium (Duoneb) 3 ml NEB Q4HRT [facility] Last Admin: 02/09/18 15:33 Dose: 3 ml Admin: 02/09/18 11:45 Dose: 3 ml Admin: 02/09/18 07:45 Dose: 3 ml Admin: 02/08/18 19:20 Dose: 3 ml Admin: 02/08/18 15:38 Dose: 3 ml Admin: 02/08/18 11:48 Dose: 3 ml Admin: 02/08/18 07:07 Dose: 3 ml Admin: 02/08/18 03:12 Dose: 3 ml Admin: 02/07/18 23:14 Dose: 3 ml Admin: 02/07/18 19:18 Dose: 3 ml Admin: 02/07/18 15:20 Dose: 3 ml Admin: 02/07/18 12:09 Dose: Not Given Admin: 02/07/18 07:19 Dose: 3 ml Admin: 02/07/18 03:51 Dose: 3 ml Admin: 02/06/18 23:48 Dose: 3 ml Admin: 02/06/18 20:36 Dose: 3 ml Aspirin (Ecotrin) 325 mg PO DAILY [facility] Last Admin: 02/09/18 09:00 Dose: 325 mg Admin: 02/08/18 08:25 Dose: 325 mg Admin: 02/07/18 09:19 Dose: 325 mg Atorvastatin Calcium (Lipitor) 80 mg PO HS [facility] Last Admin: 02/07/18 20:07 Dose: 80 mg Admin: 02/06/18 21:02 Dose: 80 mg Budesonide (Pulmicort) 0.5 mg NEB Q12 [facility] Last Admin: 02/09/18 08:30 Dose: 0.5 mg Admin: 02/08/18 19:20 Dose: 0.5 mg Admin: 02/08/18 07:07 Dose: 0.5 mg Admin: 02/07/18 19:18 Dose: 0.5 mg Admin: 02/07/18 16:47 Dose: Bupropion HCl (Wellbutrin Sr) 150 mg PO BID [facility] Last Admin: 02/09/18 09:00 Dose: 150 mg Admin: 02/08/18 08:25 Dose: 150 mg Admin: 02/07/18 20:08 Dose: 150 mg Admin: 02/07/18 09:17 Dose: 150 mg Admin: 02/06/18 21:02 Dose: 150 mg Chlorthalidone (Hygroton) 25 mg PO QDAY [facility] Last Admin: 02/09/18 09:00 Dose: 25 mg Admin: 02/08/18 08:24 Dose: 25 mg Admin: 02/07/18 09:16 Dose: 25 mg Diagnostic Test (Pha) (Accu-Chek) 1 each FS ACHS [facility] Last Admin: 02/09/18 17:06 Dose: 1 each Admin: 02/09/18 11:38 Dose: 1 each Admin: 02/09/18 07:30 Dose: 1 each Admin: 02/08/18 17:11 Dose: 1 each Admin: 02/08/18 11:43 Dose: 1 each Admin: 02/08/18 05:43 Dose: 1 each Admin: 02/07/18 23:34 Dose: 1 each Admin: 02/07/18 19:57 Dose: 1 each Admin: 02/07/18 16:39 Dose: 1 each Admin: 02/07/18 13:36 Dose: Docusate Sodium (Colace) 100 mg PO BID [facility] Last Admin: 02/09/18 09:00 Dose: 100 mg Admin: 02/08/18 08:24 Dose: 100 mg Admin: 02/07/18 20:08 Dose: 100 mg Admin: 02/07/18 09:18 Dose: 100 mg Admin: 02/06/18 21:02 Dose: 100 mg Fexofenadine HCl (Meenu) 180 mg PO DAILY [facility] Last Admin: 02/09/18 09:00 Dose: 180 mg Admin: 02/08/18 08:24 Dose: 180 mg Furosemide (Lasix) 40 mg PO QDAY [facility] Last Admin: 02/09/18 09:00 Dose: 40 mg Admin: 02/08/18 08:26 Dose: 40 mg Admin: 05/18/18 09:18 Dose: 40 mg Heparin Sodium (Porcine) (Heparin Flush) 2 ml IV Q12 [facility] Last Admin: 02/09/18 09:00 Dose: 2 ml Admin: 02/08/18 11:16 Dose: 2 ml Admin: 02/07/18 20:08 Dose: 2 ml Vancomycin HCl 1,500 mg/ (Sodium Chloride) 500 mls @ 333.3 mls/hr IV Q12H [facility] Last Infusion: 02/08/18 14:57 Dose: 0 mls/hr Admin: 02/08/18 11:15 Dose: 333.33 mls/hr Infusion: 02/08/18 00:00 Dose: 0 mls/hr Admin: 02/07/18 22:21 Dose: 333.33 mls/hr Infusion: 02/07/18 15:00 Dose: 0 mls/hr Admin: 02/07/18 13:21 Dose: 333.3 mls/hr Insulin Glargine (Lantus) 32 unit SQ QAM [facility] Last Admin: 02/09/18 08:00 Dose: 32 unit Admin: 02/08/18 08:22 Dose: 32 unit Admin: 02/07/18 09:14 Dose: 32 unit Insulin Glargine (Lantus) 16 unit SQ DAILY [facility] Last Admin: 02/09/18 17:20 Dose: 16 unit Insulin Human Lispro (Humalog) 0 unit SQ ACHS [facility] PRN Reason: Protocol Last Admin: 02/09/18 17:19 Dose: 1 unit Admin: 02/09/18 13:36 Dose: Not Given Admin: 02/09/18 12:00 Dose: 2 unit Admin: 02/08/18 17:24 Dose: 1 unit Admin: 02/08/18 11:43 Dose: 4 unit Admin: 02/08/18 08:23 Dose: 2 unit Admin: 02/07/18 20:08 Dose: 3 unit Admin: 02/07/18 17:44 Dose: 2 unit Admin: 02/07/18 13:35 Dose: Isosorbide Mononitrate (Imdur) 30 mg PO QDAY [facility] Last Admin: 02/09/18 09:32 Dose: 30 mg Admin: 02/08/18 08:26 Dose: 30 mg Admin: 02/07/18 09:19 Dose: 30 mg Losartan Potassium (Cozaar) 100 mg PO DAILY [facility] Last Admin: 02/09/18 09:00 Dose: 100 mg Metoclopramide HCl (Reglan) 10 mg PO TIDP PRN PRN Reason: Dyspepsia Last Admin: 02/09/18 17:07 Dose: 10 mg Admin: 02/09/18 11:57 Dose: 10 mg Ondansetron HCl (Zofran) 4 mg IV Q4HP PRN PRN Reason: Nausea And Vomiting Last Admin: 02/07/18 16:11 Dose: 4 mg Mirabegron [ (Myrbetriq] 50 Mg Tab) 1 dose PO DAILY [facility] Last Admin: 02/09/18 09:31 Dose: 1 dose Admin: 02/08/18 08:55 Dose: 1 dose Admin: 02/07/18 16:15 Dose: Incruse Elill[place] 62. (5 Mcg Inhaler) 1 dose INH DAILY [facility] Last Admin: 02/09/18 09:31 Dose: 1 dose Admin: 02/08/18 08:58 Dose: 1 dose Admin: 02/07/18 11:00 Dose: 1 dose Potassium Chloride (Kdur) 10 meq PO QAMCC [facility] Last Admin: 02/09/18 09:00 Dose: 10 meq Admin: 02/08/18 08:24 Dose: 10 meq Admin: 02/07/18 09:16 Dose: 10 meq Fluticasone/Salmeterol (Advair 100-50 Diskus) 1 puff INH BID [facility] Last Admin: 02/09/18 09:00 Dose: 1 inh Admin: 02/08/18 08:57 Dose: 1 inh Admin: 02/07/18 21:07 Dose: 1 inh Admin: 02/07/18 11:00 Dose: 1 inh Senna (Senokot) 2 tab PO HS [facility] Last Admin: 02/07/18 20:07 Dose: 2 tab Admin: 02/06/18 21:02 Dose: 2 tab Shift Summary 02/08/18 03:59 Shift Summary by Parul Grace Patient slept off and on this shift. Medicated with Hydrocodone 2 tabs x2 for knee pain 7/10 with good effect. BSL 217 last night, given 3 units of sliding scale insulin. Rchecked BSL at 2334H 105. Patient had upset stomach after pain pill this morning, given saltine crackers. SBA to the BR using FWW. Left PICC single lumen flushes well and with good blood return, saline locked. Left knee dressing CDI. Immobilizer in place. Patient has strong hacking cough, productive this morning, cream color. Patient has chronic hand tremors. CIWA 1. SBP elevated 160's mmHg, HR 100's. Dr. Monsalve to see patient's wound/ incision today in the evening. Initialized on 02/08/18 03:59 - END OF NOTE
[2018-02-09] MEDS: ATORVASTATIN 20 MG TABLET PO SCH (20:23)
[2018-02-09] MEDS: SENNOSIDES 1 TABLET PO SCH (20:23)
[2018-02-10] MEDS: ONDANSETRON 4 MG/2 ML VIAL IV PRN (02:16)
[2018-02-10] MEDS: IPRATROPIUM/ALBUTEROL 3 ML AMPUL.NEB NEB SCH ×3 (03:07→11:29)
[2018-02-10] MEDS: HYDROcodone/APAP 10/325MG TABLET PO PRN ×2 (04:53→14:03)
[2018-02-10 05:40] LABS: Basophils # (Auto) 0 K/mcL (0.0-0.3); Basophils % (Auto) 0.4 % (0.0-2.0); Eosinophils # (Auto) 0.2 K/mcL (0.0-0.7); Eosinophils % (Auto) 2.1 % (0.0-7.0); Granulocytes % (Auto) 74.4 % (38.0-78.0); Lymphocytes # (Auto) 1.3 K/mcL (1.5-4.8); Lymphocytes % (Auto) 13.8 % (15.5-49.0); Mean Cell Volume 93.1 fL (80.0-100.0); Mean Corpuscular HGB Conc 33.1 g/dL (31.0-36.0); Mean Corpuscular Hemoglobin 30.8 pg (26.0-34.0); Monocytes # (Auto) 0.9 K/mcL (0.1-0.9); Monocytes % (Auto) 9.3 % (1.0-12.0); Platelet Count 353 K/mcL (140-440); RBC 4.15 M/mcL (4.00-5.20); Red Cell Distribution Width 13.9 % (11.5-14.5)
[2018-02-10] MEDS: BUDESONIDE 0.5 MG/2 ML AMPUL.NEB NEB SCH (07:23)
[2018-02-10] MEDS: METOCLOPRAMIDE 10 MG TABLET PO PRN ×2 (07:35→11:32)
[2018-02-10] MEDS: INSULIN GLARGINE, HUMAN 1 UNIT/0.01 ML SQ SCH ×2 (08:00→09:38)
[2018-02-10] MEDS: INSULIN LISPRO 1 UNIT/0.01 ML UNIT SQ SCH ×2 (08:01→12:04)
[2018-02-10] MEDS: POTASSIUM CHLORIDE 10 MEQ TABLET PO SCH (08:01)
--- NOTE | 2018-02-10 08:21 | Internal Med Progress Note ---
Medical - PN: Subj Patient information: Note initiated : 02/10/18 at 8:15 am Service Date, if different from initiated Date: [] Patient: Mariel Presley 62 y/o F admitted on 02/06/18 for I&D of Left Knee/ Proximal Tibia. Chief Complaint: Patient is alert and eating. Patient anticipates discharge today to home. - Constitutional Vitals: Vital Signs Temp Pulse Resp BP Pulse Ox 98.6 F 105 H 18 166/78 90 02/10/18 06:52 02/10/18 03:23 02/10/18 06:52 02/10/18 06:52 02/10/18 06:52 Period Temp Pulse Resp BP Sys/Wood Pulse Ox Last 24 Hr 97.7 F-98.7 F 98-110 18-24 149-166/69-81 90-98 Intake and Output 02/09/18 02/10/18 02/10/18 21:59 05:59 13:59 Intake Total 650 / 650 1343 / 1343 Output Total 850 / 850 2600 / 2600 Balance -200 / -200 -1257 / -1257 Weight 191 lb Intake & Output: Intake & Output 02/09/18 02/10/18 02/10/18 21:59 05:59 13:59 Intake Total 650 / 650 1343 / 1343 Output Total 850 / 850 2600 / 2600 Balance -200 / -200 -1257 / -1257 Weight 191 lb Intake: IV 500 / 500 Vancomycin 1,500 mg In Sodium 500 / 500 Chloride 0.9% 500 ml @ 333.3 mls/hr IV Q12H [facility] Rx#: [id number] Oral 650 / 650 843 / 843 Output: Void Amount 850 / 850 2500 / 2500 Emesis 100 / 100 Other: Meal Dinner 1 saltine cracker Percent of Meal Consumed 75% 100% Feeding Ability Independent Independent # Voids 1 1 General appearance: cooperative, no acute distress Medical - PN: Obj Da - Labs CBC & Chem 7: 02/10/18 04:00 02/07/18 08:21 Labs: Abnormal Lab Results 02/10/18 02/10/18 02/08/18 04:00 04:00 04:00 Hgb 11.7 L Hct 35.8 L Lymph % (Auto) 13.8 L Lymph # (Auto) 1.3 L Sodium Chloride BUN Magnesium 1.3 L GGT Albumin 02/07/18 08:21 Hgb Hct Lymph % (Auto) Lymph # (Auto) Sodium 130 L Chloride 91 L BUN 5 L Magnesium 1.5 L GGT 39 H Albumin 3.1 L Meds: Medications Hydrocodone Bitart/Acetaminophen ([place] 10/325mg) 0 tab PO Q4HP PRN PRN Reason: PAIN LEVEL 3-6 Last Admin: 02/10/18 04:53 Dose: 2 tab Albuterol/Ipratropium (Duoneb) 3 ml NEB Q4HRT [facility] Last Admin: 02/10/18 07:22 Dose: 3 ml Aspirin (Ecotrin) 325 mg PO DAILY [facility] Last Admin: 02/09/18 09:00 Dose: 325 mg Atorvastatin Calcium (Lipitor) 80 mg PO HS [facility] Last Admin: 02/09/18 20:23 Dose: 80 mg Bisacodyl (Dulcolax) 10 mg MO Q2-3DAYS PRN PRN Reason: Constipation Budesonide (Pulmicort) 0.5 mg NEB Q12 [facility] Last Admin: 02/10/18 07:23 Dose: Not Given Bupropion HCl (Wellbutrin Sr) 150 mg PO BID [facility] Last Admin: 02/09/18 20:23 Dose: 150 mg Chlorthalidone (Hygroton) 25 mg PO QDAY [facility] Last Admin: 02/09/18 09:00 Dose: 25 mg Dextrose (Dextrose 50%) 0 ml IV UD PRN PRN Reason: Hypoglycemia Diagnostic Test (Pha) (Accu-Chek) 1 each FS ACHS [facility] Last Admin: 02/10/18 07:38 Dose: 1 each Docusate Sodium (Colace) 100 mg PO BID [facility] Last Admin: 02/09/18 20:23 Dose: 100 mg Fexofenadine HCl (Meenu) 180 mg PO DAILY [facility] Last Admin: 02/09/18 09:00 Dose: 180 mg Furosemide (Lasix) 40 mg PO QDAY [facility] Last Admin: 02/09/18 09:00 Dose: 40 mg Glucose (Insta-Glucose) 15 gm PO PRN PRN PRN Reason: Hypoglycemia Heparin Sodium (Porcine) (Heparin Flush) 2 ml IV Q12 [facility] Last Admin: 02/09/18 20:22 Dose: 2 ml Vancomycin HCl 1,500 mg/ (Sodium Chloride) 500 mls @ 333.3 mls/hr IV Q12H [facility] Last Infusion: 02/10/18 02:16 Dose: Infused Insulin Glargine (Lantus) 32 unit SQ QAM [facility] Last Admin: 02/10/18 08:00 Dose: 32 unit Insulin Glargine (Lantus) 16 unit SQ DAILY [facility] Last Admin: 02/09/18 17:20 Dose: 16 unit Insulin Human Lispro (Humalog) 0 unit SQ ACHS [facility] PRN Reason: Protocol Last Admin: 02/10/18 08:01 Dose: 1 unit Ipratropium [place] (Atrovent Hfa) 2 puff INH QIDP [facility] Isosorbide Mononitrate (Imdur) 30 mg PO QDAY [facility] Last Admin: 02/09/18 09:32 Dose: 30 mg Losartan Potassium (Cozaar) 100 mg PO DAILY [facility] Last Admin: 02/09/18 09:00 Dose: 100 mg Magnesium Hydroxide (Milk Of Magnesia) 30 ml PO BIDP PRN PRN Reason: Constipation Methocarbamol (Robaxin) 750 mg PO Q6HP PRN PRN Reason: Muscle Spasm Metoclopramide HCl (Reglan) 10 mg PO TIDP PRN PRN Reason: Dyspepsia Last Admin: 02/10/18 07:35 Dose: 10 mg Morphine Sulfate (Morphine) 0 mg IV Q1HP PRN PRN Reason: PAIN LEVEL > 6 Ondansetron HCl (Zofran) 4 mg IV Q4HP PRN PRN Reason: Nausea And Vomiting Last Admin: 02/10/18 02:16 Dose: 4 mg Mirabegron [ (Myrbetriq] 50 Mg Tab) 1 dose PO DAILY [facility] Last Admin: 02/09/18 09:31 Dose: 1 dose Incruse Elillpta 62. (5 Mcg Inhaler) 1 dose INH DAILY [facility] Last Admin: 02/09/18 09:31 Dose: 1 dose Polyethylene Glycol (Miralax) 17 gm PO DAILYP PRN PRN Reason: Constipation Potassium Chloride (Kdur) 10 meq PO QAMCC [facility] Last Admin: 02/10/18 08:01 Dose: 10 meq Fluticasone/Salmeterol (Advair 100-50 Diskus) 1 puff INH BID [facility] Last Admin: 02/09/18 20:22 Dose: 1 inh Senna (Senokot) 2 tab PO HS [facility] Last Admin: 02/09/18 20:23 Dose: 2 tab Vancomycin HCl (Vancomycin Per Pharmacy) 1 order IV UD [facility] Medical - PN: A/P - Time Spent With Patient Total time spent is greater than 50% in coordination of care (as documented) at patient's floor/unit and/or counseling patient: - Narrative A/P Narrative: Periprosthetic left TKA infection with wound and negative wound cultures but positive gram stain for gram positive cocci - Home today - 2 weeks (minimum) IV vancomycin via PICC (outpt patient infusion at 8am and 8pm) - End date for antibiotics (currently) is 02/24/2018 Medical - PN: Qual - VTE Deep Vein Thrombosis/Pulmonary Embolism Present on Admission: No
[2018-02-10] MEDS: buPROPion 150 MG TAB.SR.12H PO SCH (09:34)
[2018-02-10] MEDS: DOCUSATE SODIUM 100 MG CAPSULE PO SCH (09:34)
[2018-02-10] MEDS: ASPIRIN 325 MG ENTERIC COATED TABLET PO SCH (09:34)
[2018-02-10] MEDS: LOSARTAN 50 MG TABLET PO SCH (09:34)
[2018-02-10] MEDS: UMECLIDINIUM 62.5 MCG INH SCH (09:35)
[2018-02-10] MEDS: FUROSEMIDE 40 MG TABLET PO SCH (09:35)
[2018-02-10] MEDS: FLUTICASONE/SALMETEROL 50/100 INHALER #14 INH SCH (09:35)
[2018-02-10] MEDS: FEXOFENADINE 180 MG TABLET PO SCH (09:35)
[2018-02-10] MEDS: CHLORTHALIDONE 25 MG TABLET PO SCH (09:35)
[2018-02-10] MEDS: ISOSORBIDE MONONITRATE 30 MG TAB.XL.24H PO SCH (09:37)
[2018-02-10] MEDS ORDERED: VANCOMYCIN 1,000 MG in 0.9 % SODIUM CHLORIDE 250 ML IV ONE (10:00)
--- NOTE | 2018-02-10 12:54 | General Surgery Progress Note ---
Subjective Narrative: Note initiated : 02/10/18 at 12:50 pm Service Date, if different from initiated Date: [] Patient: Mariel Presley 62 y/o F admitted on 02/06/18 for I&D of Left Knee/ Proximal Tibia. Chief Complaint: [] Uneventful night. Pain Left knee is much improved. Ambulating well with FWW. Objective Temp Pulse Resp BP Pulse Ox 98.7 F 94 H 16 152/76 90 02/10/18 10:52 02/10/18 11:37 02/10/18 11:37 02/10/18 10:52 02/10/18 10:52 AVSS. No changes SIMBA. LEFT knee wound is dry. Incision well approximated and sutures are in tact. NO edema - Additional Data Intake & Output - Last 24 hours: Intake & Output 02/08/18 02/09/18 02/10/18 02/11/18 05:59 05:59 05:59 05:59 Intake Total 2575 / 2575 1800 / 1800 3893 / 3893 500 / 500 Output Total 350 / 350 700 / 700 4400 / 4400 400 / 400 Balance 2225 / 2225 1100 / 1100 -507 / -507 100 / 100 Weight 192 lb 12.8 oz 191 lb - Labs 02/10/18 04:00 02/07/18 08:21 Diabetes panel 02/10/18 Range/Units 04:00 Calcium 10.0 (8.6-10.4) mg/dl Calcium panel 02/10/18 Range/Units 04:00 Calcium 10.0 (8.6-10.4) mg/dl Pituitary panel 02/10/18 Range/Units 04:00 Calcium 10.0 (8.6-10.4) mg/dl Adrenal panel 02/10/18 Range/Units 04:00 Calcium 10.0 (8.6-10.4) mg/dl Assessment and Plan (1) Visit for wound care Status: Acute Current Visit: Yes - Narrative A/P Narrative: Assessment: Satisfactory progress. Plan: OK for discharge with continuing wound care and IV antibiotics. Spoke with Dr. Mendieta, Hospitalist Physician. F/U at wound clinic after discharge. - Time Spent With Patient Total time spent is greater than 50% in coordination of care (as documented) at patient's floor/unit and/or counseling patient: 15 - 24 minutes
== END 2018-02-10 13:45 | disposition home or self-care (01) | DRG 464 ==
LOC: SUR 11:58 → MEDSUR 19:15
PROVIDERS: ADMIT Orthopaedic Surgery Foot and Ankle Surgery; ATTEND Orthopaedic Surgery Foot and Ankle Surgery